=== PATIENT | female | born 1980 | race American Indian/Alaskan Native ===

== ENCOUNTER 2017-06-01 06:01 | Day surgery (SDC) | payer MEDICAID ==
[~2017-06-01 06:01] MED LIST: NACL 0.9% 1000 ML 1,000 ML IV SCH; PEPCID PO NR; REGLAN PO NR; VERSED IV NR
[2017-06-01] MEDS ORDERED: NACL BACTERIOSTATIC INFILTRATI ONE (06:46)
[2017-06-01] MEDS ORDERED: REGLAN PO NR (07:00)
[2017-06-01] MEDS ORDERED: ANCEF/STERILE WATER 2 GM/20 ML IV NR (07:15)
[2017-06-01 07:22] LABS: Hematocrit 34.1 % (30.3-42.9); Hemoglobin 10.8 gm/dl (10.1-14.3)
--- NOTE | 2017-06-01 07:28 | Short Stay Summary ---
Short Stay Documentation Date of service: 06/01/17 Narrative H&P: Pt is a 36yo BF LMP 2012 s/p DELL presents for surgical evaluation and treatment of a left ovarian cyst that has been causing pelvic pain. She has had previous surgery on the same left ovary for and ovarian cyst, and so this time she desires the whole left ovary be removed. Pelvic u/s shows an enlarged left ovary with ovarian cysts 2.6 x 2.4cm She is therefore scheduled for a Laproscopic left ovarian cystectomy, possible left oophorectomy. - History Principal diagnosis: Pelvic pain H&P: obtained from office Past Medical History: No medical history Past Surgical History: hysterectomy Social history: no significant social history, single - Allergies and Medications Current Medications: Allergies No Known Allergies Allergy (Unverified 05/31/17 12:50) Home Medications Medication Instructions Recorded Confirmed Last Taken Type No Known Home Medications [No 05/31/17 05/31/17 Unknown History Reported Home Medications] Active Medications Famotidine (Pepcid) 20 mg PO PREOP NR Stop: 06/01/17 23:59 Sodium Chloride (Nacl 0.9% 1000 Ml) 1,000 mls @ 75 mls/hr IV DIRECT BENJAMIN Metoclopramide HCl (Reglan) 10 mg PO PREOP NR Stop: 06/01/17 23:45 Midazolam HCl (Versed) 2 mg IV PREOP NR Stop: 06/01/17 23:59 - Physical exam General appearance: mild distress Integumentary: no rash HEENT: Atraumatic Lungs: Clear to auscultation Breasts: deferred Heart: Regular rate Gastrointestinal: normal Female Genitourinary: deferred Rectal Exam: deferred Extremities: no ischemia, No edema Neurological: Normal gait, Normal speech - Brief post op/procedure progress note Date of procedure: 06/01/17 Pre-op diagnosis: 1. Pelvic pain 2. Bilateral ovarian cysts Post-op diagnosis: same Procedure: 1. Laproscopic left salpingoophorectomy 2. Right ovarian cystectomy 3. Right salpingectomy Anesthesia: GETA Findings: Absent uterus and cervix. Small cystic left ovary and remnant left fallopian tube. A large multicystic right ovary and remnant right fallopian tube. Surgeon: AUREA TREVIÑO Estimated blood loss: minimal Pathology: list (Left fallopian tube and ovary; Right ovarian cyst and fallopian tube.) Specimen disposition: to lab Condition: stable - Hospital course Hospital course: Unremarkable. - Disposition Condition at discharge: Good Disposition: DC-01 TO HOME OR SELFCARE - Discharge Diagnoses (1) Bilateral ovarian cysts Status: Resolved (2) Pelvic pain Status: Chronic Short Stay Discharge Plan Activity: no restrictions Diet: regular Wound: open to air, keep clean and dry Follow up with: AUREA TREVIÑO MD [Staff Physician] - 14 Days Prescriptions: HYDROcodone/APAP 5-325 [Schneider 5/325] 1 each PO Q6HR PRN #30 tablet PRN Reason: Pain Ibuprofen [Motrin] 800 mg PO Q8HR PRN #30 tablet PRN Reason: Moder Pain Unrelieved By Schneider
--- NOTE | 2017-06-01 07:29 | Anesthesia Day of Surgery ---
Anesthesia Day of Surgery - Day of Surgery Patient Examined: Yes Patient H&P Reviewed: Yes Patient is NPO: Yes
--- NOTE | 2017-06-01 07:31 | Anesthesia Consultation ---
Anesthesia Consult and Med Hx Date of service: 06/01/17 - Airway Anesthetic Teeth Evaluation: Good ROM Head & Neck: Adequate Mental/Hyoid Distance: Adequate Mallampati Class: Class II Intubation Access Assessment: Probably Good - Pulmonary Exam CTA: Yes - Cardiac Exam Cardiac Exam: RRR - Pre-Operative Health Status ASA Pre-Surgery Classification: ASA1, ASA2 Proposed Anesthetic Plan: General - Pulmonary Hx Smoking: No Hx Asthma: No - Cardiovascular System Hx Hypertension: No Hx Heart Murmur: Yes - Central Nervous System Hx Seizures: No CVA: No Hx Psychiatric Problems: No - Endocrine Hx Renal Disease: No Hx Cirrhosis: No Hx Non-Insulin Dependent Diabetes: No - Hematic Hx Anemia: No - Other Systems Hx Alcohol Use: Yes (occas) Hx Cancer: No Hx Obesity: Yes - Additional Comments Anesthesia Medical History Comments: Had a fever after both and hysterectomy but does not report them as being associated with malignant hyperthermia.
[2017-06-01] MEDS ORDERED: MARCAINE 0.5% 30 ML INFILTRATI ONE (07:33)
[2017-06-01] MEDS ORDERED: ZEMURON IV ONE (07:55)
[2017-06-01] MEDS ORDERED: SUBLIMAZE ONE (07:55)
[2017-06-01] MEDS ORDERED: DIPRIVAN 10 MG/ML IV ONE (07:55)
[2017-06-01] MEDS ORDERED: ZOFRAN ONE (07:55)
[2017-06-01] MEDS ORDERED: XYLOCAINE MPF 2% ONE (07:55)
[2017-06-01] MEDS ORDERED: DECADRON ONE (07:55)
[2017-06-01] MEDS ORDERED: ROBINUL ONE ×2 (07:56)
[2017-06-01] MEDS ORDERED: NEOSTIGMINE ONE (07:56)
[2017-06-01] MEDS ORDERED: DILAUDID ONE (07:56)
[2017-06-01] MEDS ORDERED: TRANSDERM-SCOP TD NR (08:00)
[2017-06-01] MEDS ORDERED: ANCEF/STERILE WATER 2 GM/20 ML 2 GM/20 ML SYRINGE IV NR (08:00)
[2017-06-01] MEDS ORDERED: ZOFRAN IV PRN (08:00)
[2017-06-01] MEDS ORDERED: MARCAINE 0.5% INFILTRATI ONE ×2 (08:33)
[2017-06-01] MEDS ORDERED: NACL 0.9% IR ONE ×2 (08:34→08:54)
[2017-06-01] MEDS ORDERED: TORADOL ONE (09:16)
[2017-06-01] MEDS ORDERED: NACL 0.9% 1000 ML 1,000 ML ONE (09:17)
[2017-06-01] MEDS: DILAUDID IV PRN ×4 (09:42→10:48)
--- NOTE | 2017-06-01 10:12 | Operative Report ---
Operative Report Operative Report: Date of procedure: 06/01/2017 Pre-operative diagnosis: 1. Pelvic pain 2. Left ovarian cyst Post-operative diagnosis: Same with bilateral ovarian cysts Procedure name(s): 1. Laparoscopic left salpingo-oophorectomy 2. Right ovarian cystectomy 3. Right salpingectomy Surgeon: Naun Trevino MD [employer] Manager: None Anesthesia: Gen. endotracheal intubation by Dr. Milan EBL: Minimal less than 10 mls Findings: Absent uterus and cervix. Small cystic left ovary with remnant left fallopian tube adherent to the left pelvic sidewall. A multicystic large right ovary with remnant right fallopian tube adherent to the right pelvic sidewall. Procedure: After the patient was correctly identified, she was prepped and draped in usual sterile fashion and placed in the dorsolithotomy position. First the bladder was emptied using a straight catheter, next the speculum was placed in the vaginal vault and since the cervix was absent a sponge stick was placed in the vagina. Attention was then turned to the abdomen where first a periumbilical incision was made in the skin knife. The Optiview trocar was inserted under direct visualization, and after an adequate amount of the abdominal insufflation visualization of the pelvic organs found the uterus to be absent, the left ovary was small and cystic with a remnant left fallopian tube adherent to the left pelvic sidewall. The right ovary was enlarged and multicystic with a remnant right fallopian tube adherent to the right pelvic sidewall. A suprapubic and a right lateral incision was made through which 5 mm trochars were placed in order to aid in manipulation of the pelvic organs. The right ovarian cysts were excised using the tripolar cautery, and sent to pathology. The remnant right fallopian tube also excised and sent to pathology. The left ovarian cyst and ovary, along with the fallopian tube were excised off the infundibulopelvic ligament and sent to pathology after removal using the Endopouch. Copious amounts of irrigation was then performed, and after excellent hemostasis was assured the procedure was considered complete. The Tisseel sealant was sprayed across the excision sites. All instruments removed from the abdomen, the abdomen deflated, and the periumbilical incision was closed using 0 Vicryl suture in a [id number] configuration of the fascia followed by 4 Monocryl suture in a subcuticular fashion on the skin. The same procedure was performed on the suprapubic and right lateral incisions. Each incision was infiltrated using 0.5% Marcaine solution. The sponge stick was removed from the vagina. The patient tolerated the procedure well and was transported to recovery in stable condition.
[2017-06-01] MEDS ORDERED: NORCO 5/325 PO PRN (12:00)
[2017-06-01 12:04] VITALS: BP 126/75
== END 2017-06-01 12:08 | disposition home or self-care (01) ==
LOC: OR 06:01
PROVIDERS: ATTEND Obstetrics & Gynecology
DX: N83.11 Corpus luteum cyst of right ovary (principal); N83.8 Other noninflammatory disorders of ovary, fallopian tube and broad ligament; E66.9 Obesity, unspecified
CPT/HCPCS: 36415; 58661; 58662; 85014; 85018; 88305; A4217; C9250; J0690; J1100; J1170; J1885; J2250; J2405; J2704; J2710; J3010; J7030; 88302